=== PATIENT | male | born 2000 ===

== ENCOUNTER → 2020-06-08 | Outpatient (CLI) | payer SELFPAY ==
[~2020-06-08] VITALS: Ht 175.3 cm; Wt 65.9 kg
[~2020-06-08] MED LIST: GADOBUTROL 7.5 MMOL/7.5 ML (GADAVIST) VIAL IV ONE; HOLD METFORMIN - RECEIVED CONTRAST 20 ML VIAL IV SCH; IOHEXOL 300 MG/ML 50 ML (OMNIPAQUE 300) VIAL IV ONE
--- NOTE | 2020-06-08 14:25 | Diagnostic Imaging Report ---
INDICATION: Left shoulder pain. The patient is brought to the procedure room and placed on the table in the supine position. Skin over the left shoulder was prepped and draped in the usual sterile fashion. A small amount of 1% lidocaine was utilized for local anesthesia. A 22-gauge needle was advanced into the left shoulder at the rotator interval. A 15 mL solution of iodinated contrast, normal saline and gadolinium was injected under fluoroscopic observation. Needle was withdrawn and hemostasis was obtained. Patient tolerated the procedure well and was sent to MRI in satisfactory condition. A total of 13.5 seconds of fluoroscopic time was utilized. IMPRESSION: Successful left shoulder injection of gadolinium contrast solution, using fluoroscopy. Dictated by: Dictated on workstation # [id number]
--- NOTE | 2020-06-08 18:36 | Diagnostic Imaging Report ---
PROCEDURE: MRI left joint upper extremity with contrast. TECHNIQUE: Multiplanar, multisequence contrast-enhanced MRI of the left upper extremity was accomplished. INDICATION: Surgery in the left clavicle previously, now with left shoulder pain. History of weight lifting. COMPARISON: None. FINDINGS: There is motion artifact on multiple sequences. No acute fracture is seen in the left shoulder. Alignment appears normal. The joint is well distended with contrast. The supraspinatus, infraspinatus, teres minor, and subscapularis tendons appear intact. No muscular atrophy is seen. The long head of the biceps tendon appears normal in course and signal. The glenoid labrum demonstrates a sub-labral foramen at the anterior superior aspect, but no definite tear or paralabral cyst is seen. The acromion has a curved undersurface without hooking. The coracoclavicular and coracoacromial ligaments are intact. There is mild irregularity at the distal clavicle at the cortex (image 12 series 7 and image 5 series 3). There is no significant associated bone marrow edema. There is edema in the soft tissues, anteriorly, from anesthetic injection IMPRESSION: 1. No rotator cuff tear or definite labral tear is seen. 2. Mild cortical irregularity of the distal clavicle, may be due to age indeterminate osteolysis, although there is not significant associated bone marrow edema. Dictated by: Dictated on workstation # [id number]
== END ==
LOC: RAD 12:28
PROVIDERS: ATTEND Orthopaedic Surgery
DX: S43.432A Superior glenoid labrum lesion of left shoulder, initial encounter (principal)
CPT/HCPCS: 23350; 73040; 73222

== ENCOUNTER → 2021-10-21 | Outpatient (CLI) | payer SELFPAY ==
[~2021-10-21] VITALS: Ht 175 cm; Wt 68.0 kg
[~2021-10-21] MED LIST changes: +ACETAMINOPHEN 500 MG TAB (TYLENOL) PO PRN; +CASIRIVIMAB/IMDEVIMAB 1,200 MG in NS (IVPB) 250 ML IV ONE; +EPINEPHrine INJECTION 1 MG/ML AMP IM PRN; -GADOBUTROL 7.5 MMOL/7.5 ML (GADAVIST) VIAL IV ONE; -HOLD METFORMIN - RECEIVED CONTRAST 20 ML VIAL IV SCH; -IOHEXOL 300 MG/ML 50 ML (OMNIPAQUE 300) VIAL IV ONE; +ONDANSETRON 4 MG/2 ML (SDV) Z0FRAN IV PRN; +diphenhydrAMINE 50 MG/ML INJ (BENADRYL) IV PRN
[2021-10-21 10:18] VITALS: BP 132/105
[2021-10-21 12:02] VITALS: BP 143/72
[2021-10-21 13:02] VITALS: BP 139/73
== END ==
LOC: INFUSION 10:24
PROVIDERS: ATTEND Nurse Practitioner Family
DX: U07.1 COVID-19 (principal)